=== PATIENT | female | born 1945 | race Caucasian/White ===

== ENCOUNTER 2016-10-15 20:35 | Observation (INO) | payer MEDICARE ==
[2016-10-15] MEDS ORDERED: NS 0.9% 1000 ML* 1,000 ML IV ONE (21:01)
[2016-10-15 22:30] LABS: Albumin 4.2 g/dL (3.2-5.2); BUN/Creatinine Ratio 23.9 (8-20); Calcium 9.8 mg/dL (8.6-10.3); EGFR African American 77.4 (>60); EGFR Non-African American 60.2 (>60); Globulin 3.6 g/dL (2-4); Magnesium 2.2 mg/dL (1.9-2.7); Potassium 3.2 mmol/L (3.5-5.0); Total Bilirubin 0.6 mg/dL (0.2-1.0); Total Protein 7.8 g/dL (6.4-8.9)
--- NOTE | 2016-10-15 22:58 | RAD ---
INDICATION: Syncope. COMPARISON: Comparison is made with a prior chest x-ray study from May 04, 2016. TECHNIQUE: A portable view of the chest was obtained. FINDINGS: Cardiac and mediastinal contours appear to be within normal limits. The lungs are clear. No pleural effusion is seen. IMPRESSION: NO EVIDENCE FOR ACUTE DISEASE.
[2016-10-16 00:40] LABS: Hematocrit 34 % (35-47); Hemoglobin 11.7 g/dl (12.0-16.0); Mean Corpuscular HGB Conc 34 g/dl (31-36); Mean Corpuscular Hemoglobin 32 pg (27-31); Mean Corpuscular Volume 93 fL (80-97); Mean Platelet Volume 8 um3 (7.4-10.4); Red Blood Count 3.65 10^6/ul (4.0-5.4); Red Cell Distribution Width 13 % (10.5-15); White Blood Count 6.9 10^3/ul (3.5-10.8)
--- NOTE | 2016-10-16 02:36 | ED ---
sabine Macedo Timothy, scribed for Bryant Padilla on 10/15/16 at 2100 . Complex/Multi-Sys Presentation - HPI Summary HPI Summary: LEVEL V CAVEAT: Pt has alzheimer's and is unable to give an accurate Hx. Flavia Ma is a 70 yo female presenting to [facility] with general unwell feeling. Present in room is Heaven a liability claims representative from [facility]. Per Heaven, Pt was sitting in the nursing room when she seemed to lose consciousness, become quite pale, and began vomiting for 10 minutes. She slowly regained consciousness and has returned to nromal color. Per Pt she states she is feeling better. She has alzheimer's. She states she is not in any current pain. She denies CP, SOB, abd pain, or any other sx. Her MHx includes alzheimer' s with violent episodes, diverticulitis, depression, anxiety. - History Of Current Complaint Chief Complaint: EDGeneral Hx Obtained From: Patient, Family/Cnc Lathe Machinist - Heaven Onset/Duration: Sudden Onset Timing: Constant Severity Currently: Mild Severity Initially: Moderate Associated Signs And Symptoms: Positive: Syncope, Vomiting, Other - pale - Allergies/Home Medications Allergies/Adverse Reactions: Allergies Allergy/AdvReac Type Severity Reaction Status Date / Time No Known Allergies Allergy Verified 10/15/16 23:19 Home Medications: Home Medications Gabapentin [Neurontin 400 mg cap] 600 mg PO TID 10/15/16 [History Confirmed ] PMH/Surg Hx/FS Hx/Imm Hx Endocrine/Hematology History: Denies: Hx Diabetes, Hx Thyroid Disease Cardiovascular History: Denies: Hx Hypertension Respiratory History: Denies: Hx Asthma, Hx Chronic Obstructive Pulmonary Disease (COPD) GI History: Reports: Hx Diverticulosis - Diverticulitis, Hx Irritable Bowel, Other GI Disorders - diverticulitis Denies: Hx Ulcer Neurological History: Reports: Hx Dementia - Alzheimer's with history of violent episodes, Other Neuro Impairments/Disorders - Hx Alzheimer's Psychiatric History: Reports: Hx Anxiety, Hx Depression, Hx of Violent Episodes Against Others Denies: Hx Eating Disorder - Surgical History Surgery Procedure, Year, and Place: ears - Immunization History Date of Tetanus Vaccine: Up to date Date of Influenza Vaccine: Fall 2011 Infectious Disease History: No Infectious Disease History: Denies: Hx Hepatitis, Hx Human Immunodeficiency Virus (HIV), Traveled Outside the [place] in Last 30 Days - Family History Family History: Dementia: Mother, 2 brothers - Social History Alcohol Use: None Substance Use Type: Reports: None Smoking Status (MU): Never Smoked Tobacco - Additional Comments History Additional Comments: LEVEL V CAVEAT: Pt is unable to recall MHx due to Alzheimer's Disease Review of Systems - ROS Summary Review of Systems Summary: LEVEL V CAVEAT: Pt has alzheimer's and is unable to accurately review systems Constitutional: Other - pale Eyes: Negative ENT: Negative Cardiovascular: Negative Negative: Chest Pain Respiratory: Negative Negative: Shortness Of Breath Positive: Vomiting. Negative: Abdominal Pain Genitourinary: Negative Musculoskeletal: Negative Skin: Negative Positive: Syncope Psychological: Normal All Other Systems Reviewed And Are Negative: Yes Physical Exam - Summary Physical Exam Summary: LEVEL V CAVEAT: Pt has alzheimer's Triage Information Reviewed: Yes Vital Signs On Initial Exam: Initial Vitals Temp Pulse Resp BP Pulse Ox 98.2 F 67 16 153/74 94 10/15/16 20:41 10/15/16 20:41 10/15/16 20:41 10/15/16 20:41 10/15/16 20:41 Vital Signs Reviewed: Yes Completion Of Physical Exam Limited Due To: Dementia Appearance: Positive: Well-Appearing, No Pain Distress, Well-Nourished Skin: Positive: Warm, Skin Color Reflects Adequate Perfusion, Dry Head/Face: Positive: Normal Head/Face Inspection Eyes: Positive: EOMI, SARA ENT: Positive: Other - dry mucous membranes Neck: Positive: Supple, Nontender Respiratory/Lung Sounds: Positive: Clear to Auscultation, Breath Sounds Present Cardiovascular: Positive: RRR, Pulses are Symmetrical in both Upper and Lower Extremities Abdomen Description: Positive: Nontender, Soft Bowel Sounds: Positive: Present Musculoskeletal: Positive: Normal, Strength/ROM Intact Neurological: Positive: Normal, Sensory/Motor Intact, Alert, Oriented to Person Place, Time Psychiatric: Positive: Normal Diagnostics - Vital Signs Vital Signs Temp Pulse Resp BP Pulse Ox 10/15/16 20:41 98.2 F 67 16 153/74 94 - Laboratory Lab Results: Lab Results 10/15/16 10/15/16 10/16/16 Range/Units 22:09 22:09 00:00 WBC 6.9 (3.5-10.8) 10^3/ul RBC 3.65 L (4.0-5.4) 10^6/ul Hgb 11.7 L (12.0-16.0) g/dl Hct 34 L (35-47) % MCV 93 (80-97) fL MCH 32 H (27-31) pg MCHC 34 (31-36) g/dl RDW 13 (10.5-15) % Plt Count 175 (150-450) 10^3/ul MPV 8 (7.4-10.4) um3 Neut % (Auto) 68.9 (38-83) % Lymph % (Auto) 22.0 L (25-47) % [place] % (Auto) 6.2 (1-9) % Eos % (Auto) 2.1 (0-6) % Baso % (Auto) 0.8 (0-2) % Absolute Neuts (auto) 4.7 (1.5-7.7) 10^3/ul Absolute Lymphs (auto) 1.5 (1.0-4.8) 10^3/ul Absolute Monos (auto) 0.4 (0-0.8) 10^3/ul Absolute Eos (auto) 0.1 (0-0.6) 10^3/ul Absolute Basos (auto) 0.1 (0-0.2) 10^3/ul Absolute Nucleated RBC 0 10^3/ul Nucleated RBC % 0.1 INR (Anticoag Therapy) 1.02 (0.89-1.11) APTT 29.1 (26.0-36.3) seconds Sodium 137 (133-145) mmol/L Potassium 3.2 L (3.5-5.0) mmol/L Chloride 106 (101-111) mmol/L Carbon Dioxide 23 (22-32) mmol/L Anion Gap 8 (2-11) mmol/L BUN 22 (6-24) mg/dL Creatinine 0.92 (0.51-0.95) mg/dL Est GFR ( Amer) 77.4 (>60) Est GFR (Non-Af Amer) 60.2 (>60) BUN/Creatinine Ratio 23.9 H (8-20) Glucose 103 H (70-100) mg/dL Lactic Acid (0.5-2.0) mmol/L Calcium 9.8 (8.6-10.3) mg/dL Magnesium 2.2 (1.9-2.7) mg/dL Total Bilirubin 0.60 (0.2-1.0) mg/dL AST 19 (13-39) U/L ALT 14 (7-52) U/L Alkaline Phosphatase 86 (34-104) U/L Troponin I 0.00 (<0.04) ng/mL B-Natriuretic Peptide ( - 100) pg/mL Total Protein 7.8 (6.4-8.9) g/dL Albumin 4.2 (3.2-5.2) g/dL Globulin 3.6 (2-4) g/dL Albumin/Globulin Ratio 1.2 (1-3) TSH Cancelled 10/16/16 10/16/16 10/16/16 Range/Units 00:00 00:00 00:00 WBC (3.5-10.8) 10^3/ul RBC (4.0-5.4) 10^6/ul Hgb (12.0-16.0) g/dl Hct (35-47) % MCV (80-97) fL MCH (27-31) pg MCHC (31-36) g/dl RDW (10.5-15) % Plt Count (150-450) 10^3/ul MPV (7.4-10.4) um3 Neut % (Auto) (38-83) % Lymph % (Auto) (25-47) % [place] % (Auto) (1-9) % Eos % (Auto) (0-6) % Baso % (Auto) (0-2) % Absolute Neuts (auto) (1.5-7.7) 10^3/ul Absolute Lymphs (auto) (1.0-4.8) 10^3/ul Absolute Monos (auto) (0-0.8) 10^3/ul Absolute Eos (auto) (0-0.6) 10^3/ul Absolute Basos (auto) (0-0.2) 10^3/ul Absolute Nucleated RBC 10^3/ul Nucleated RBC % INR (Anticoag Therapy) (0.89-1.11) APTT (26.0-36.3) seconds Sodium (133-145) mmol/L Potassium (3.5-5.0) mmol/L Chloride (101-111) mmol/L Carbon Dioxide (22-32) mmol/L Anion Gap (2-11) mmol/L BUN (6-24) mg/dL Creatinine (0.51-0.95) mg/dL Est GFR ( Amer) (>60) Est GFR (Non-Af Amer) (>60) BUN/Creatinine Ratio (8-20) Glucose (70-100) mg/dL Lactic Acid 1.7 (0.5-2.0) mmol/L Calcium (8.6-10.3) mg/dL Magnesium (1.9-2.7) mg/dL Total Bilirubin (0.2-1.0) mg/dL AST (13-39) U/L ALT (7-52) U/L Alkaline Phosphatase (34-104) U/L Troponin I (<0.04) ng/mL B-Natriuretic Peptide 32 ( - 100) pg/mL Total Protein (6.4-8.9) g/dL Albumin (3.2-5.2) g/dL Globulin (2-4) g/dL Albumin/Globulin Ratio (1-3) TSH 1.06 Result Diagrams: 10/16/16 00:00 10/15/16 22:09 Lab Statement: Any lab studies that have been ordered have been reviewed, and results considered in the medical decision making process. - Radiology CXR Xray Interpretation: No Acute Changes - IMPRESSION: NO EVIDENCE FOR ACUTE DISEASE. Radiology Interpretation Completed By: Radiologist - CT Brain CT Interpretation: No Acute Changes - No acute brain parenchymal abnormality and no change since 05/04/16. No hemorrhage, mass, or acute territorial infarct. Atrophy and chronic small vessel ischemic changes. Clear visualized paranasal sinuses. Visualized mastoid air cells clear. CT Interpretation Completed By: Radiologist - Imaging director of clinical applications - EKG 2114 Cardiac Rate: Bradycardia - 58 BPM EKG Interpretation: Sinus bradycardia @ 58 BPM, no new changes Re-Evaluation - Re-Evaluation First Eval Re-Evaluation Time: 01:34 Complex Multi-Symp Course/Dx Assessment/Plan: Flavia Ma is a 70 yo female presenting to [facility] with syncope and vomiting, with a Hx of alzheimer's. After EKG WNL and negative CXR, as well as discussion with Dr. Smith, she will be admitted to [facility] for further evaluation and treatment. - Diagnoses Differential Diagnoses/HQI/PQRI: CVA, Metabolic Abnormality, Sepsis, Other - intracranial bleeding Provider Diagnoses: Syncope, Vomiting, Syncope and collapse, Alzheimer disease - Physician Notifications Discussed Care Of Patient With: 2353 - Dr. Smith (hospitalist) - Discussed Pt condition. 0043 - Dr. Smith (hospitalist) - agrees to admit Pt. Instructed by Provider To: Admit As Inpatient Discharge - Discharge Plan Condition: Stable Disposition: ADMITTED TO [facility] Referrals: Suzan An MD [Primary Care Provider] - The documentation as recorded by the sabine solis Timothy accurately reflects the service I personally performed and the decisions made by , Bryant Padilla.
[2016-10-16] MEDS ORDERED: Acetaminophen TAB* 325 MG PO PRN (03:26)
[2016-10-16] MEDS ORDERED: Aspirin Low Dose CHEW TAB* 81 MG PO ONE (03:27)
[2016-10-16] MEDS ORDERED: Ondansetron INJ* 2 MG/ML VIAL IV PRN (03:27)
[2016-10-16] MEDS ORDERED: Melatonin (NF) 3 MG TAB PO PRN (03:27)
[2016-10-16] MEDS ORDERED: NS 0.9% 1000 ML* 1,000 ML IV SCH (03:30)
[2016-10-16 04:00] LABS: BUN/Creatinine Ratio 22.5 (8-20); Calcium 9.2 mg/dL (8.6-10.3); EGFR African American 90.9 (>60); EGFR Non-African American 70.7 (>60); Potassium 3.4 mmol/L (3.5-5.0)
[2016-10-16 04:02] LABS: Troponin I 0.01 ng/mL (<0.04)
--- NOTE | 2016-10-16 04:12 | HP ---
H&P (Free Text) History and Physical: PCP: Mekhi An MD Date/Time of Evaluation: 10/16/2016 0330 CC: syncope HPI: Mrs Ma is a 70YO female resident of [facility] HX advanced Alzheimer' s dementia who is unable to provide any information beyond current status. As such this information is obtained from ED staff & the available medical records. Per the transfer sheet from [facility] Mrs Ma experienced an unresponsive episode associated with pallor, diaphoresis, & dry heaves. Per EMS report, she was incontinent of feces in her adult diaper. They also report a known "stomach flu" going through the facility. Evaluation reveals sinus bradycardia rate 58 on initial ECG w/ minimal ST elevation in V2/3 with decreased upward concavity compared to 05/04/2016. This is improved upon repeat ECG. Vitals are stable, afebrile. CXR PMedHx Alzheimer's dementia, advanced diverticulosis IBS anxiety related abdominal pain w/ negative work up depression Allergies No Known Allergies Allergy (Verified 10/15/16 23:19) Ambulatory Orders Acetaminophen TAB* [Tylenol TAB*] 650 mg PO Q4H PRN MDD 8 tabs 12/16/15 Acetaminophen TAB* [Tylenol TAB*] 650 mg PO TID PRN 12/16/15 Hemorrhoidal OINT* [Preparation H*] 1 applic NV Q8HR PRN 12/16/15 Melatonin (NF) [Meladox] 3 mg PO BEDTIME 12/16/15 Nutritional Supplements [Nutritional Drink] 1 can PO TID 12/16/15 Polyethylene Glycol 3350* [Miralax*] 17 gm PO DAILY 12/16/15 Senna TAB* [Senokot TAB*] 1 tab PO DAILY 12/16/15 Gabapentin [Neurontin 400 mg cap] 600 mg PO TID 10/15/16 SocHx: no tobacco, alcohol, or recreational drugs confirmed w/ in prior H&P; resides at [facility]; DNR code status per [id number] MOL FamHx: unobtainable ROS: as above, otherwise reviewed and all were negative Constitutional: NAD, normally developed, well-nourished elderly white female vitals: Vital Signs Temp 36.8 C 10/15/16 20:41 Pulse 64 10/16/16 01:00 Resp 13 10/16/16 01:00 BP 153/74 03/13/17 20:41 Pulse Ox 96 10/16/16 01:00 Intake & Output 10/15/16 10/15/16 10/16/16 11:59 23:59 11:59 Weight 54.431 kg HEENM: atraumatic; sclera/conjunctiva: non-icteric/clear; hearing: clinically intact; oropharynx: clear, mucosa tacky Neck: soft tissue: no nuchal rigidity; thyroid: normal Pulmonary: clear to auscultation bilaterally, good aeration, no accessory muscle use CV: BR/RR, normal S1S2, no carotid bruit, no jugular venous distention, 2+ B DP/ PT, no edema Abdominal: soft, non-distended, non-tender, no rebound/guarding/rigidity, normoactive bowel sounds, no hepatosplenomegaly or masses, no costovertebral angle tenderness Musculoskeletal: general: grossly intact Integumental: normal appearance & texture of exposed skin Psychiatric orientation: AA&O to person only affect: calm/confused mood: pleasant eye contact: fair content: unreliable memory: markedly impaired responses: tangential insight: poor Testing: Lab Results 10/15/16 10/15/16 10/16/16 Range/Units 22:09 22:09 00:00 WBC 6.9 (3.5-10.8) 10^3/ul RBC 3.65 L (4.0-5.4) 10^6/ul Hgb 11.7 L (12.0-16.0) g/dl Hct 34 L (35-47) % MCV 93 (80-97) fL MCH 32 H (27-31) pg MCHC 34 (31-36) g/dl RDW 13 (10.5-15) % Plt Count 175 (150-450) 10^3/ul MPV 8 (7.4-10.4) um3 Neut % (Auto) 68.9 (38-83) % Lymph % (Auto) 22.0 L (25-47) % [place] % (Auto) 6.2 (1-9) % Eos % (Auto) 2.1 (0-6) % Baso % (Auto) 0.8 (0-2) % Absolute Neuts (auto) 4.7 (1.5-7.7) 10^3/ul Absolute Lymphs (auto) 1.5 (1.0-4.8) 10^3/ul Absolute Monos (auto) 0.4 (0-0.8) 10^3/ul Absolute Eos (auto) 0.1 (0-0.6) 10^3/ul Absolute Basos (auto) 0.1 (0-0.2) 10^3/ul Absolute Nucleated RBC 0 10^3/ul Nucleated RBC % 0.1 INR (Anticoag Therapy) 1.02 (0.89-1.11) APTT 29.1 (26.0-36.3) seconds Sodium 137 (133-145) mmol/L Potassium 3.2 L (3.5-5.0) mmol/L Chloride 106 (101-111) mmol/L Carbon Dioxide 23 (22-32) mmol/L Anion Gap 8 (2-11) mmol/L BUN 22 (6-24) mg/dL Creatinine 0.92 (0.51-0.95) mg/dL Est GFR ( Amer) 77.4 (>60) Est GFR (Non-Af Amer) 60.2 (>60) BUN/Creatinine Ratio 23.9 H (8-20) Glucose 103 H (70-100) mg/dL Lactic Acid (0.5-2.0) mmol/L Calcium 9.8 (8.6-10.3) mg/dL Magnesium 2.2 (1.9-2.7) mg/dL Total Bilirubin 0.60 (0.2-1.0) mg/dL AST 19 (13-39) U/L ALT 14 (7-52) U/L Alkaline Phosphatase 86 (34-104) U/L Troponin I 0.00 (<0.04) ng/mL B-Natriuretic Peptide ( - 100) pg/mL Total Protein 7.8 (6.4-8.9) g/dL Albumin 4.2 (3.2-5.2) g/dL Globulin 3.6 (2-4) g/dL Albumin/Globulin Ratio 1.2 (1-3) TSH Cancelled 10/16/16 10/16/16 10/16/16 Range/Units 00:00 00:00 00:00 WBC (3.5-10.8) 10^3/ul RBC (4.0-5.4) 10^6/ul Hgb (12.0-16.0) g/dl Hct (35-47) % MCV (80-97) fL MCH (27-31) pg MCHC (31-36) g/dl RDW (10.5-15) % Plt Count (150-450) 10^3/ul MPV (7.4-10.4) um3 Neut % (Auto) (38-83) % Lymph % (Auto) (25-47) % [place] % (Auto) (1-9) % Eos % (Auto) (0-6) % Baso % (Auto) (0-2) % Absolute Neuts (auto) (1.5-7.7) 10^3/ul Absolute Lymphs (auto) (1.0-4.8) 10^3/ul Absolute Monos (auto) (0-0.8) 10^3/ul Absolute Eos (auto) (0-0.6) 10^3/ul Absolute Basos (auto) (0-0.2) 10^3/ul Absolute Nucleated RBC 10^3/ul Nucleated RBC % INR (Anticoag Therapy) (0.89-1.11) APTT (26.0-36.3) seconds Sodium (133-145) mmol/L Potassium (3.5-5.0) mmol/L Chloride (101-111) mmol/L Carbon Dioxide (22-32) mmol/L Anion Gap (2-11) mmol/L BUN (6-24) mg/dL Creatinine (0.51-0.95) mg/dL Est GFR ( Amer) (>60) Est GFR (Non-Af Amer) (>60) BUN/Creatinine Ratio (8-20) Glucose (70-100) mg/dL Lactic Acid 1.7 (0.5-2.0) mmol/L Calcium (8.6-10.3) mg/dL Magnesium (1.9-2.7) mg/dL Total Bilirubin (0.2-1.0) mg/dL AST (13-39) U/L ALT (7-52) U/L Alkaline Phosphatase (34-104) U/L Troponin I (<0.04) ng/mL B-Natriuretic Peptide 32 ( - 100) pg/mL Total Protein (6.4-8.9) g/dL Albumin (3.2-5.2) g/dL Globulin (2-4) g/dL Albumin/Globulin Ratio (1-3) TSH 1.06 ECG, personally reviewed: sinus bradycardia rate 58 on initial ECG w/ minimal ST elevation in V2/3 with decreased upward concavity compared to 05/04/2016. This is improved upon repeat ECG. Vitals are stable, afebrile. CXR CXR, personally reviewed: IMPRESSION: NO EVIDENCE FOR ACUTE DISEASE. CT brain WO, personally reviewed: No acute brain parenchymal abnormality and no change since 05/04/16. No hemorrhage, mass, or acute territorial infarct. Atrophy and chronic small vessel ischemic changes. Clear visualized paranasal sinuses. Visualized mastoid air cells clear. Impression: 70F HX advanced Alzheimer's presents with syncopal episode associated with pallor, diaphoresis, & dry heaves. DIAGNOSIS & PLAN Primary syncope w/ dDx: arrhythmia vs ACS vs vasovagal vs seizure : telemetry : ECHO in AM : troponins negative : EEG in AM : supplemental oxygen : supportive care Secondary dementia : not on meds : no acute issues Admission Rational: observation for syncope of uncertain etiology DVTp: heparin SQ Code Status: DNR HCP: , Tuan
[2016-10-16] MEDS: Metoprolol Succinate XL TAB* 25 MG PO SCH (05:03)
[2016-10-16] MEDS: Omeprazole CAP* 20 MG PO SCH (05:03)
[2016-10-16 05:49] LABS: Hematocrit 38 % (35-47); Hemoglobin 12.7 g/dl (12.0-16.0); Mean Corpuscular HGB Conc 34 g/dl (31-36); Mean Corpuscular Hemoglobin 32 pg (27-31); Mean Corpuscular Volume 94 fL (80-97); Mean Platelet Volume 8 um3 (7.4-10.4); Red Blood Count 4.02 10^6/ul (4.0-5.4); Red Cell Distribution Width 13 % (10.5-15); White Blood Count 5.9 10^3/ul (3.5-10.8)
--- NOTE | 2016-10-16 07:56 | RAD ---
INDICATION: Syncope COMPARISON: CT brain May 04, 2016 TECHNIQUE: Noncontrast axial source images were acquired from the skull base to the vertex. FINDINGS: Ventricles/sulci: There is cortical atrophy with compensatory dilatation of the CSF spaces. Brain parenchyma: There is periventricular and subcortical white matter change compatible with chronic ischemia. Intracranial hemorrhage:None. Extra-axial spaces: There are no abnormal extra axial fluid collections or evidence of extra-axial mass. Calvarium: There is no calvarial fracture or other calvarial abnormality. Scalp: There is no evidence of scalp or extracalvarial soft tissue abnormality. Paranasal sinuses/mastoid: The paranasal sinuses and mastoid air cells are clear. Other: None. IMPRESSION: CORTICAL ATROPHY WITH CHRONIC MICROVASCULAR ISCHEMIC CHANGES. NO ACUTE FINDINGS.
[2016-10-16] MEDS: Docusate CAP* 100 MG PO SCH ×2 (09:59→22:56)
[2016-10-16 10:01] LABS: Urine Bilirubin Negative (Negative); Urine Glucose Negative (Negative); Urine Nitrite Negative (Negative)
[2016-10-16] MEDS ORDERED: Haloperidol INJ IV/IM* 5 MG/ML AMP IV SLOW PU ONE (10:10)
--- NOTE | 2016-10-16 12:40 | ECHO ---
Patient: SALLY HAYES Rec#: [id number] : 1945 Date: 10/16/2016 Age: 70y Weight: kg / NaN lbs Sex: F Room#: 440 Admit Date#: 10/16/2016 Type: Inpatient Referring: Neto Smith MD Reading: Luther Clay MD Business Manager College [employer] University: Nelia Cox RDCS CC: Suzan An MD Transthoracic Echocardiogram Indication: Abn EKG BP: 125/62 HR: 63 Rhythm: NSR Findings History: Alzeheimer's,anxiety depression. Technical Comments: The study is technically difficult. Patient would only cooperate while in the supine position. Completed at 1204. The study was technically limited due to the patient's inability to lay in the left lateral decubitus position. Left Ventricle: The left ventricular chamber size is normal. Global left ventricular wall motion and contractility are within normal limits. There is normal left ventricular systolic function. The estimated ejection fraction is 55-60%. Normal left ventricular diastolic filling is observed. Right Ventricle: The right ventricular cavity size is normal. The right ventricular global systolic function is normal. Right Atrium: The right atrial cavity size is normal. Aortic Valve: The aortic valve is trileaflet. There is no evidence of aortic regurgitation. There is no evidence of aortic stenosis. Mitral Valve: The mitral valve leaflets appear normal. There is a trace of mitral regurgitation. There is no evidence of mitral stenosis. Tricuspid Valve: The tricuspid valve leaflets are normal. There is trace to mild tricuspid regurgitation. There is no tricuspid stenosis. Pulmonic Valve: The pulmonic valve appears normal. There is no evidence of pulmonic regurgitation. There is no pulmonic stenosis. Pericardium: A pericardial fat pad is visualized. Aorta: There is no dilatation of the ascending aorta. There is no dilation of the aortic root. Pulmonary Artery: The main pulmonary artery appears normal. Venous: The venous system is not well visualized. Conclusions Global left ventricular wall motion and contractility are within normal limits. There is normal left ventricular systolic function. The estimated ejection fraction is 55-60%. Normal left ventricular diastolic filling is observed. No significant valvular disease: There is a trace of mitral regurgitation. There is trace to mild tricuspid regurgitation. No reports of prior studies are offered for comparison. Measurements Name Value Normal Range RVIDd (AP) 2D 1.9 cm (0.9 - 2.6) RVDdMajor (2D) 2.9 cm (2.2 - 4.4) RAd ISD 4CH 4 cm (3.4 - 4.9) RA (A4C)W 2.9 cm (2.9 - 4.6) IVSd (2D) 0.7 cm (0.6 - 1) LVPWd (2D) 0.6 cm (0.6 - 1) LVIDd (2D) 3.7 cm (3.6 - 5.4) LVIDs (2D) 2.4 cm - LV FS (2D) 35 % (25 - 45) Aortic Annulus 1.1 cm (1.4 - 2.6) Ao root diameter (2D) 3.3 cm (2.1 - 3.5) Ascending Ao 2.6 cm (2.1 - 3.4) Aortic arch 2.4 cm (1.8 - 3.4) Descending Ao 0.4 cm - LA dimension (AP) 2D 2.6 cm (2.3 - 3.8) LAd ISD 4CH 3.8 cm (2.9 - 5.3) LA ISD 4CH W 3.3 cm (2.5 - 4.5) Name Value Normal Range LA ESV SP 4CH (A/L) 26 ml - LA ESV SP 2CH (A/L) 23 ml - LA ESV BP (A/L) 25 ml - LA ESV BP (A/L) index 16.72 ml/m2 - LA ESV SP 4CH (MOD) 22 ml - LA ESV SP 2CH (MOD) 21 ml - Name Value Normal Range MV E-wave Vmax 0.8 m/sec - MV deceleration time 193 msec - MV A-wave Vmax 0.6 m/sec - MV E:A ratio 1.26 ratio - LV septal e' Vmax 0.07 m/sec - LV lateral e' Vmax 0.12 m/sec - LV E:e' septal ratio 11.42 ratio - LV E:e' lateral ratio 6.67 ratio - Name Value Normal Range AV Vmax 1.1 m/sec - AV VTI 28.4 cm - AV peak gradient 4.63 mmHg - AV mean gradient 2.34 mmHg - LVOT Vmax 0.8 m/sec - LVOT VTI 19.6 cm - LVOT peak gradient 2.67 mmHg - LVOT mean gradient 1.08 mmHg - Name Value Normal Range TR Vmax 2.2 m/sec - TR peak gradient 20 mmHg - RAP 8 mmHg - RVSP 28 mmHg - Name Value Normal Range PV Vmax 0.6 m/sec - PV peak gradient 1.56 mmHg -
--- NOTE | 2016-10-16 15:12 | PN ---
Subjective Date of Service: 10/16/16 Interval History: Patient seen and examined at bedside. Nursing called earlier to report patient agitation. Patient is a resident of [facility] and has a significant hx for dementia. She does not respond appropriately to questions. When asked if she had any pain or discomfort or if anything hurt, she states, "I don't know, what do you think?" She is oriented only to self. Safety monitor in pace as patient wanders and becomes very agitated with medical therapies. Telemetry: SR 70s-90s Family History: Unchanged from Admission Social History: Unchanged from Admission Past Medical History: Unchanged from Admission Objective Active Medications: Acetaminophen (Tylenol Tab*) 650 mg PO Q6H PRN PRN Reason: FEVER/PAIN Aspirin (Aspirin Tab*) 325 mg PO DAILY [facility] Docusate Sodium (Colace Cap*) 200 mg PO BID [facility] Last Admin: 10/16/16 09:59 Dose: Not Given Heparin Sodium (Porcine) (Heparin Vial(*)) 5,000 units SUBCUT Q8HR [facility] Sodium Chloride (Ns 0.9% 1000 Ml*) 1,000 mls @ 100 mls/hr IV PER RATE [facility] Melatonin (Melatonin (Nf)) 3 mg PO BEDTIME PRN; Protocol PRN Reason: Sleep Metoprolol Succinate (Toprol Xl Tab*) 12.5 mg PO 0900 [facility] Last Admin: 10/16/16 05:03 Dose: 12.5 mg Omeprazole (Prilosec Cap*) 20 mg PO DAILY@0600 [facility] Last Admin: 10/16/16 05:03 Dose: 20 mg Ondansetron HCl (Zofran Inj*) 4 mg IV Q6H PRN PRN Reason: NAUSEA Vital Signs 10/16/16 10/16/16 10/16/16 04:00 07:21 10:05 Temperature 98.3 F 98.5 F Pulse Rate 56 69 Respiratory 15 18 Rate Blood Pressure 125/62 118/46 (mmHg) O2 Sat by Pulse 97 100 99 Oximetry 10/16/16 11:39 Temperature Pulse Rate 57 Respiratory 16 Rate Blood Pressure 120/59 (mmHg) O2 Sat by Pulse 98 Oximetry Oxygen Devices in Use Now: None Appearance: Elderly female, pacing in halls, in NAD Eyes: PERRLA Ears/Nose/Mouth/Throat: Clear Oropharnyx, Mucous Membranes Moist Neck: NL Appearance and Movements; NL JVP Respiratory: Symmetrical Chest Expansion and Respiratory Effort, Clear to Auscultation Cardiovascular: NL Sounds; No Murmurs; No JVD, RRR Abdominal: NL Sounds; No Tenderness; No Distention Extremities: No Edema Skin: No Rash or Ulcers Neurological: - - alert, oriented to self only Lines/Tubes/Other Access: Clean, Dry and Intact Peripheral IV Nutrition: Taking PO's Result Diagrams: 10/16/16 05:11 10/16/16 03:28 Additional Lab and Data: Lab Results 10/15/16 10/15/16 10/16/16 Range/Units 22:09 22:09 00:00 WBC 6.9 (3.5-10.8) 10^3/ul RBC 3.65 L (4.0-5.4) 10^6/ul Hgb 11.7 L (12.0-16.0) g/dl Hct 34 L (35-47) % MCV 93 (80-97) fL MCH 32 H (27-31) pg MCHC 34 (31-36) g/dl RDW 13 (10.5-15) % Plt Count 175 (150-450) 10^3/ul MPV 8 (7.4-10.4) um3 Neut % (Auto) 68.9 (38-83) % Lymph % (Auto) 22.0 L (25-47) % Bond % (Auto) 6.2 (1-9) % Eos % (Auto) 2.1 (0-6) % Baso % (Auto) 0.8 (0-2) % Absolute Neuts (auto) 4.7 (1.5-7.7) 10^3/ul Absolute Lymphs (auto) 1.5 (1.0-4.8) 10^3/ul Absolute Monos (auto) 0.4 (0-0.8) 10^3/ul Absolute Eos (auto) 0.1 (0-0.6) 10^3/ul Absolute Basos (auto) 0.1 (0-0.2) 10^3/ul Absolute Nucleated RBC 0 10^3/ul Nucleated RBC % 0.1 INR (Anticoag Therapy) 1.02 (0.89-1.11) APTT 29.1 (26.0-36.3) seconds Sodium 137 (133-145) mmol/L Potassium 3.2 L (3.5-5.0) mmol/L Chloride 106 (101-111) mmol/L Carbon Dioxide 23 (22-32) mmol/L Anion Gap 8 (2-11) mmol/L BUN 22 (6-24) mg/dL Creatinine 0.92 (0.51-0.95) mg/dL Est GFR ( Amer) 77.4 (>60) Est GFR (Non-Af Amer) 60.2 (>60) BUN/Creatinine Ratio 23.9 H (8-20) Glucose 103 H (70-100) mg/dL Lactic Acid (0.5-2.0) mmol/L Calcium 9.8 (8.6-10.3) mg/dL Magnesium 2.2 (1.9-2.7) mg/dL Total Bilirubin 0.60 (0.2-1.0) mg/dL AST 19 (13-39) U/L ALT 14 (7-52) U/L Alkaline Phosphatase 86 (34-104) U/L Troponin I 0.00 (<0.04) ng/mL B-Natriuretic Peptide ( - 100) pg/mL Total Protein 7.8 (6.4-8.9) g/dL Albumin 4.2 (3.2-5.2) g/dL Globulin 3.6 (2-4) g/dL Albumin/Globulin Ratio 1.2 (1-3) TSH Cancelled 10/16/16 10/16/16 10/16/16 Range/Units 00:00 00:00 00:00 WBC (3.5-10.8) 10^3/ul RBC (4.0-5.4) 10^6/ul Hgb (12.0-16.0) g/dl Hct (35-47) % MCV (80-97) fL MCH (27-31) pg MCHC (31-36) g/dl RDW (10.5-15) % Plt Count (150-450) 10^3/ul MPV (7.4-10.4) um3 Neut % (Auto) (38-83) % Lymph % (Auto) (25-47) % Bond % (Auto) (1-9) % Eos % (Auto) (0-6) % Baso % (Auto) (0-2) % Absolute Neuts (auto) (1.5-7.7) 10^3/ul Absolute Lymphs (auto) (1.0-4.8) 10^3/ul Absolute Monos (auto) (0-0.8) 10^3/ul Absolute Eos (auto) (0-0.6) 10^3/ul Absolute Basos (auto) (0-0.2) 10^3/ul Absolute Nucleated RBC 10^3/ul Nucleated RBC % INR (Anticoag Therapy) (0.89-1.11) APTT (26.0-36.3) seconds Sodium (133-145) mmol/L Potassium (3.5-5.0) mmol/L Chloride (101-111) mmol/L Carbon Dioxide (22-32) mmol/L Anion Gap (2-11) mmol/L BUN (6-24) mg/dL Creatinine (0.51-0.95) mg/dL Est GFR ( Amer) (>60) Est GFR (Non-Af Amer) (>60) BUN/Creatinine Ratio (8-20) Glucose (70-100) mg/dL Lactic Acid 1.7 (0.5-2.0) mmol/L Calcium (8.6-10.3) mg/dL Magnesium (1.9-2.7) mg/dL Total Bilirubin (0.2-1.0) mg/dL AST (13-39) U/L ALT (7-52) U/L Alkaline Phosphatase (34-104) U/L Troponin I (<0.04) ng/mL B-Natriuretic Peptide 32 ( - 100) pg/mL Total Protein (6.4-8.9) g/dL Albumin (3.2-5.2) g/dL Globulin (2-4) g/dL Albumin/Globulin Ratio (1-3) TSH 1.06 Assess/Plan/Problems-Billing Assessment: Ms. Ma is a 70 yo female with a PMH of advanced Alzheimer's dementia, IBS, diverticulosis, anxiety related abdominal pain, and depression who presented to the ED on 10/15/16 for evaluation of a syncopal episode at [facility]. - Patient Problems (1) Syncope and collapse Code(s): R55 - SYNCOPE AND COLLAPSE Comment: Patient with significant dementia and unable to provide further information. Found unresponsive with pallor, diaphoresis, and incontinence Troponins unremarkable and no significant ST changes to EKG. No arrhythmias noted on telemetry, other than occasional PVCs. Suspect vasovagal syncope, perhaps dehydration secondary to previous gastroenteritis. No n/v here and patient with small amounts of PO intake. IV hydration given. Recommend continued outpatient follow-up as warranted. (2) Alzheimer disease Code(s): G30.9 - ALZHEIMER'S DISEASE, UNSPECIFIED Comment: Supportive care. Not on any maintenance medications. Seroquel while in hospital and PRN haldol for increased agitation. Continue public safety director. (3) Depression Code(s): F32.9 - MAJOR DEPRESSIVE DISORDER, SINGLE EPISODE, UNSPECIFIED Comment: Supportive care, not on any regular medications. (4) Irritable bowel syndrome (IBS) Comment: Stable. Not on chronic medications. No n/v/d noted. (5) DVT prophylaxis Code(s): [id number] - Comment: SQ heparin Status and Disposition: OBV admit. D/c to home when medically stable.
[2016-10-16] MEDS: QUEtiapine TAB* 25 MG PO SCH (16:29)
[2016-10-16] MEDS ORDERED: Haloperidol INJ IV/IM* 5 MG/ML AMP IV SLOW PU PRN (18:23)
--- NOTE | 2016-10-17 00:18 | EEG ---
ELECTROENCEPHALOGRAPHY: DATE OF STUDY: 10/16/2016. PATIENT OF: Dr. Smith. HISTORY: This 70-year-old woman with advanced Alzheimer's being evaluated for an episode of unresponsiveness associated with pallor, diaphoresis, and dry heaves. He was incontinent of stool. This study was done to rule out seizures. MEDICATIONS: Include: 1. Colace. 2. Heparin. 3. Prilosec. 4. Toprol. 5. Melatonin. 6. Zofran. 7. Gabapentin. INTERPRETATION: With the patient awake, background cerebral activity consists of admixed delta, theta, and alpha range frequencies that have a diffuse field. No epileptiform potentials, focal abnormalities, or major asymmetries of background are noted. IMPRESSION: This awake EEG is abnormal because of diffuse slowing of background consistent with an encephalopathy, but nonspecific as to the etiology. A diagnosis of advanced Alzheimer's is consistent with the findings on EEG. [id number]/CPS #: [id number] MTDD
[2016-10-17] MEDS: Omeprazole CAP* 20 MG PO SCH (05:43)
[2016-10-17] MEDS ORDERED: Heparin VIAL(*) 5000 UNITS/ML VIAL (FIVE THOUSAND) SUBCUT SCH (06:00)
[2016-10-17] MEDS: Docusate CAP* 100 MG PO SCH (08:28)
[2016-10-17] MEDS: Metoprolol Succinate XL TAB* 25 MG PO SCH (08:28)
[2016-10-17] MEDS: QUEtiapine TAB* 25 MG PO SCH (08:28)
[2016-10-17] MEDS ORDERED: Aspirin TAB* 325 MG PO SCH (09:00)
--- NOTE | 2016-10-17 11:53 | PN ---
Subjective Date of Service: 10/17/16 Interval History: Patient seen and examined at bedside. She is resting in bed. septic pump truck driver in room. septic pump truck driver reports that she has been resting and intermittently resting. Patient previously complained of abdominal pain earlier this morning but denies pain now. She states, "It would be nice to go home." I could not elicit any complaint from patient or during assessment. No further episodes of syncope. Family History: Unchanged from Admission Social History: Unchanged from Admission Past Medical History: Unchanged from Admission Objective Active Medications: Acetaminophen (Tylenol Tab*) 650 mg PO Q6H PRN PRN Reason: FEVER/PAIN Aspirin (Aspirin Tab*) 325 mg PO DAILY [facility] Last Admin: 10/17/16 08:28 Dose: 325 mg Docusate Sodium (Colace Cap*) 200 mg PO BID [facility] Last Admin: 10/17/16 08:28 Dose: 200 mg Haloperidol Lactate (Haldol Inj Iv/Im*) 2.5 mg IV SLOW PU Q6H PRN PRN Reason: AGITATION Last Admin: 10/16/16 22:50 Dose: 2.5 mg Heparin Sodium (Porcine) (Heparin Vial(*)) 5,000 units SUBCUT Q8HR [facility] Last Admin: 10/17/16 05:48 Dose: 5,000 units Sodium Chloride (Ns 0.9% 1000 Ml*) 1,000 mls @ 100 mls/hr IV PER RATE [facility] Last Admin: 10/17/16 05:37 Dose: 100 mls/hr Melatonin (Melatonin (Nf)) 3 mg PO BEDTIME PRN; Protocol PRN Reason: Sleep Last Admin: 10/17/16 00:49 Dose: 3 mg Metoprolol Succinate (Toprol Xl Tab*) 12.5 mg PO 0900 [facility] Last Admin: 10/17/16 08:28 Dose: 12.5 mg Omeprazole (Prilosec Cap*) 20 mg PO DAILY@0600 [facility] Last Admin: 10/17/16 05:43 Dose: 20 mg Quetiapine Fumarate (Seroquel Tab*) 25 mg PO DAILY [facility] Last Admin: 10/17/16 08:28 Dose: 25 mg Vital Signs 10/16/16 10/17/16 10/17/16 19:40 03:59 07:57 Temperature 97.4 F 98.1 F 98.0 F Pulse Rate 98 83 63 Respiratory 18 16 16 Rate Blood Pressure 136/107 136/65 134/59 (mmHg) O2 Sat by Pulse 94 94 98 Oximetry Oxygen Devices in Use Now: None Appearance: Older female patient, lying in bed, in NAD Eyes: PERRLA Ears/Nose/Mouth/Throat: - - pt uncooperative with opening mouth Neck: NL Appearance and Movements; NL JVP Respiratory: Symmetrical Chest Expansion and Respiratory Effort, Clear to Auscultation Cardiovascular: NL Sounds; No Murmurs; No JVD, RRR Abdominal: NL Sounds; No Tenderness; No Distention Extremities: No Edema Skin: No Rash or Ulcers Neurological: - - alert, oriented to self only Nutrition: Taking PO's Result Diagrams: 10/16/16 05:11 10/16/16 03:28 Additional Lab and Data: Lab Results 10/15/16 10/15/16 10/16/16 Range/Units 22:09 22:09 00:00 WBC 6.9 (3.5-10.8) 10^3/ul RBC 3.65 L (4.0-5.4) 10^6/ul Hgb 11.7 L (12.0-16.0) g/dl Hct 34 L (35-47) % MCV 93 (80-97) fL MCH 32 H (27-31) pg MCHC 34 (31-36) g/dl RDW 13 (10.5-15) % Plt Count 175 (150-450) 10^3/ul MPV 8 (7.4-10.4) um3 Neut % (Auto) 68.9 (38-83) % Lymph % (Auto) 22.0 L (25-47) % [place] % (Auto) 6.2 (1-9) % Eos % (Auto) 2.1 (0-6) % Baso % (Auto) 0.8 (0-2) % Absolute Neuts (auto) 4.7 (1.5-7.7) 10^3/ul Absolute Lymphs (auto) 1.5 (1.0-4.8) 10^3/ul Absolute Monos (auto) 0.4 (0-0.8) 10^3/ul Absolute Eos (auto) 0.1 (0-0.6) 10^3/ul Absolute Basos (auto) 0.1 (0-0.2) 10^3/ul Absolute Nucleated RBC 0 10^3/ul Nucleated RBC % 0.1 INR (Anticoag Therapy) 1.02 (0.89-1.11) APTT 29.1 (26.0-36.3) seconds Sodium 137 (133-145) mmol/L Potassium 3.2 L (3.5-5.0) mmol/L Chloride 106 (101-111) mmol/L Carbon Dioxide 23 (22-32) mmol/L Anion Gap 8 (2-11) mmol/L BUN 22 (6-24) mg/dL Creatinine 0.92 (0.51-0.95) mg/dL Est GFR ( Amer) 77.4 (>60) Est GFR (Non-Af Amer) 60.2 (>60) BUN/Creatinine Ratio 23.9 H (8-20) Glucose 103 H (70-100) mg/dL Lactic Acid (0.5-2.0) mmol/L Calcium 9.8 (8.6-10.3) mg/dL Magnesium 2.2 (1.9-2.7) mg/dL Total Bilirubin 0.60 (0.2-1.0) mg/dL AST 19 (13-39) U/L ALT 14 (7-52) U/L Alkaline Phosphatase 86 (34-104) U/L Troponin I 0.00 (<0.04) ng/mL B-Natriuretic Peptide ( - 100) pg/mL Total Protein 7.8 (6.4-8.9) g/dL Albumin 4.2 (3.2-5.2) g/dL Globulin 3.6 (2-4) g/dL Albumin/Globulin Ratio 1.2 (1-3) TSH Cancelled 10/16/16 10/16/16 10/16/16 Range/Units 00:00 00:00 00:00 WBC (3.5-10.8) 10^3/ul RBC (4.0-5.4) 10^6/ul Hgb (12.0-16.0) g/dl Hct (35-47) % MCV (80-97) fL MCH (27-31) pg MCHC (31-36) g/dl RDW (10.5-15) % Plt Count (150-450) 10^3/ul MPV (7.4-10.4) um3 Neut % (Auto) (38-83) % Lymph % (Auto) (25-47) % [place] % (Auto) (1-9) % Eos % (Auto) (0-6) % Baso % (Auto) (0-2) % Absolute Neuts (auto) (1.5-7.7) 10^3/ul Absolute Lymphs (auto) (1.0-4.8) 10^3/ul Absolute Monos (auto) (0-0.8) 10^3/ul Absolute Eos (auto) (0-0.6) 10^3/ul Absolute Basos (auto) (0-0.2) 10^3/ul Absolute Nucleated RBC 10^3/ul Nucleated RBC % INR (Anticoag Therapy) (0.89-1.11) APTT (26.0-36.3) seconds Sodium (133-145) mmol/L Potassium (3.5-5.0) mmol/L Chloride (101-111) mmol/L Carbon Dioxide (22-32) mmol/L Anion Gap (2-11) mmol/L BUN (6-24) mg/dL Creatinine (0.51-0.95) mg/dL Est GFR ( Amer) (>60) Est GFR (Non-Af Amer) (>60) BUN/Creatinine Ratio (8-20) Glucose (70-100) mg/dL Lactic Acid 1.7 (0.5-2.0) mmol/L Calcium (8.6-10.3) mg/dL Magnesium (1.9-2.7) mg/dL Total Bilirubin (0.2-1.0) mg/dL AST (13-39) U/L ALT (7-52) U/L Alkaline Phosphatase (34-104) U/L Troponin I (<0.04) ng/mL B-Natriuretic Peptide 32 ( - 100) pg/mL Total Protein (6.4-8.9) g/dL Albumin (3.2-5.2) g/dL Globulin (2-4) g/dL Albumin/Globulin Ratio (1-3) TSH 1.06 Assess/Plan/Problems-Billing Assessment: Ms. Ma is a 70 yo female with a PMH of advanced Alzheimer's dementia, IBS, diverticulosis, anxiety related abdominal pain, and depression who presented to the ED on 10/15/16 for evaluation of a syncopal episode at [facility]. - Patient Problems (1) Syncope and collapse Current Visit: No Status: Acute Code(s): R55 - SYNCOPE AND COLLAPSE SNOMED Code(s): 682565570 Comment: Patient with significant dementia and unable to provide further information. Found unresponsive with pallor, diaphoresis, and incontinence Abnormal EEG, findings consistent with Alzheimer's dementia. Troponins unremarkable and no significant ST changes to EKG. No further episodes or c/o chest pain, SOB. No arrhythmias noted on telemetry, other than occasional PVCs. Suspect vasovagal syncope, perhaps dehydration secondary to previous gastroenteritis. No n/v here and patient with small amounts of PO intake. IV hydration given. Recommend continued outpatient follow-up as warranted. (2) Alzheimer disease Current Visit: Yes Status: Chronic Code(s): G30.9 - ALZHEIMER'S DISEASE, UNSPECIFIED SNOMED Code(s): 88599451 Comment: Supportive care. Not on any maintenance medications. Seroquel while in hospital and PRN haldol for increased agitation. Continue safety analyst. (3) Depression Current Visit: Yes Status: Chronic Code(s): F32.9 - MAJOR DEPRESSIVE DISORDER, SINGLE EPISODE, UNSPECIFIED SNOMED Code(s): 04764556 Comment: Supportive care, not on any regular medications. (4) Irritable bowel syndrome (IBS) Current Visit: Yes Status: Chronic Comment: Stable. Not on chronic medications. No n/v/d noted. (5) DVT prophylaxis Current Visit: Yes Status: Acute Code(s): [id number] - SNOMED Code(s): 270401992 Comment: SQ heparin Status and Disposition: OBV admit. D/c to home.
[2016-10-17 12:19] VITALS: BP 137/57
--- NOTE | 2016-10-18 01:40 | DS ---
DISCHARGE SUMMARY: DATE OF ADMISSION: 10/16/16 DATE OF DISCHARGE: 10/17/16 PROVIDER: Dana Chan NP. ATTENDING PHYSICIAN: Dr. Maximo Palomares *(as dictated by Dana Chan NP). PCP: Suzan An MD PRIMARY DISCHARGE DIAGNOSIS: 1. Unresponsive episode, likely secondary to vasovagal syncope versus dehydration. SECONDARY DISCHARGE DIAGNOSES: 1. Alzheimer's dementia. 2. Diverticulosis. 3. Irritable bowel syndrome. 4. Anxiety-related abdominal pain with negative workup. 5. Depression. MEDICATIONS AT DISCHARGE: 1. Gabapentin 600 mg t.i.d. 2. Acetaminophen 650 mg t.i.d. p.r.n. 3. Senna one tablet daily. 4. Polyethylene glycol 17 g daily. 5. Nutritional supplement one can t.i.d. 6. Melatonin 3 mg at bedtime. 7. Preparation H one application per rectum q. 8 hours p.r.n. HOSPITAL TESTING DURING THIS ADMISSION: Chest x-ray, 10/15/16. Impression: No evidence for acute disease. EKG, 10/15/16, shows sinus bradycardia with minimal ST elevation in leads V2 and V3 with decreased upward concavity compared to April 2016. This was improved upon repeat EKG. CT brain. Impression: Cortical atrophy with chronic microvascular ischemic changes. No acute findings. Transthoracic echocardiogram. Conclusion: Global left ventricular wall motion and contractility are within normal limits. There is normal left ventricular systolic function. The estimated ejection fraction is 55% to 60%. Normal left ventricular diastolic filling is observed. No significant valvular disease: There is a trace mitral regurgitation. There is a trace to mild tricuspid regurgitation. No reports of prior studies are offered for comparison. EEG from 10/16/16. Interpretation: With the patient awake, background cerebral activity consists of admixed delta, theta, and alpha range frequencies that have a diffuse field. No epileptiform potentials, focal abnormalities, or major asymmetries of background are noted. Impression: This awake EEG is abnormal because of the diffuse slowing of background consistent with an encephalopathy, but nonspecific as to the etiology. A diagnosis of advanced Alzheimer's is consistent with the findings on EEG. HOSPITAL COURSE OF STAY: For full details, please refer to the H and P provided by Dr. Smith on 10/16/16. In summary, Ms. Ma was sent to the ER for evaluation of an assumed syncopal episode at [facility]. Per the [facility] staff, Ms. Ma experienced an unresponsive episode associated with pallor, diaphoresis, and dry heaves. Per the EMS report, she was incontinent of feces in her adult diaper. There is a known "stomach flu" going through the facility. As the patient has dementia, she was unable to provide any collateral information. With this presentation, there was concern for potential arrhythmias versus acute coronary syndrome versus vasovagal syncope versus a seizure. The patient was admitted to telemetry and during her admission, remained in sinus rhythm with only occasional PVCs noted on her panel monitor. Her troponins are negative at 0.00 and 0.01, and her EKG showed no significant ST changes or T-wave inversions. During her time here, she has had no further episodes of syncope. We did monitor her for any seizure activity and she did have an EEG as previously mentioned and dictated. Her echocardiogram did not show any significant abnormalities. Her urinalysis was negative for any nitrites, leukocyte esterase or bacteria. Her white blood cell count is normal. Ms. Ma remained relatively stable during her time here. She has had no episodes of vomiting or diarrhea. She has had one small bowel movement and has had small amounts of p.o. intake with encouragement. She did demonstrate some agitation and anxiety in her new environment. However, she was given a health safety coordinator for supportive care. We did have to utilize Seroquel in order to combat any acute delirium on top of her baseline dementia. The patient did respond well to the Seroquel here in the hospital that was given on 10/16/16. This morning, the patient has been resting. She denies any acute concerns. On occasion, from yesterday to today, the patient does report abdominal pain; however, I cannot elicit any abdominal pain with palpation and she does have positive bowel sounds. She is tolerating p.o. intake. She denies abdominal pain when I asked her. Per her records, though, it appears that she has some chronic abdominal pain, but there are no signs or symptoms of acute inflammation. Her vital signs are stable with no fevers. In regards to her syncope, I feel that this may be secondary to her vasovagal syncopal reaction. Perhaps she may have had some dehydration as she was exhibiting signs of gastroenteritis earlier in the week prior to admission. It is unclear at this time. However, during her admission time here, she has been stable and has been ambulating around the unit multiple times with no concerns. If there is concern for further arrhythmias, the patient may benefit from a Holter monitor. However, I am not sure how well she will tolerate that in the outpatient setting given her dementia. CONCERNS AT DISCHARGE: Ms. Ma will be discharged back to [facility] at [place] on 10/17/16. She has a followup with her facility provider, Dr. An. DIET: Regular diet with additional supplements. ACTIVITY: As tolerated. CONDITION: Stable. DISPOSITION: To [facility]. TIME SPENT: Time spent on this discharge was approximately 45 minutes. Again, this is only a brief summary of the patient's hospital course of stay. For full details, please refer to the full medical record. If you have any further questions or need further assistance, please feel free to contact me at . DANA CHAN NP CC: Dr. An* [id number]/CPS #: [id number] MTDD
== END 2016-10-17 14:30 ==
LOC: ED 20:35 → MEDTELE 10-16 03:50
PROVIDERS: ADMIT Hospitalist; ATTEND Internal Medicine
DX: R55 Syncope and collapse (principal); G30.9 Alzheimer's disease, unspecified; F02.80 Dementia in other diseases classified elsewhere, unspecified severity, without behavioral disturbance, psychotic disturbance, mood disturbance, and anxiety; K57.90 Diverticulosis of intestine, part unspecified, without perforation or abscess without bleeding; R00.1 Bradycardia, unspecified; K58.9 Irritable bowel syndrome, unspecified; F41.9 Anxiety disorder, unspecified; R10.9 Unspecified abdominal pain; F32.9 Major depressive disorder, single episode, unspecified; Z79.899 Other long term (current) drug therapy
CPT/HCPCS: 36415; 70450; 71010; 80048; 80053; 81003; 83605; 83735; 83880; 84443; 84484; 85025; 85610; 85730; 87641; 93005; 93306; 95819; 96361; 96372; 96374; 96376; 99285; A9270-GY; G0378; J1630; J1644